=== PATIENT | female | born 1950 | race Caucasian/White ===

== ENCOUNTER 2018-06-23 07:06 | Day surgery (SDC) | payer OTHER ==
[~2018-06-23] VITALS: Ht 165.1 cm; Wt 48.5 kg
[~2018-06-23 07:06] MED LIST: ALPR.25 PO; ASACOL HD800 MG PO; CALCAVITD; CALCIUM + D3 E1 EACH PO; CYCL10 PO; DICLOFENAC SOD100 GM TOP; ERGO400; Estrace Vagin42.5 GM VAG; Flonase 0.05% N16 GM; HYDSUL200 PO; Hair, Skin & N1 EACH PO; L-Lysine500 M1; MAGCHL64ER PO; MERIBIN5 MG; PIRO20 PO; PROLIA60 MG/1 ML IM; RAME8 PO; TEMA7.5 PO; TRAM50 PO
[2018-06-24] MEDS ORDERED: OXYC5 PO (10:07)
== END 2018-06-24 11:40 | disposition home or self-care (01) ==
LOC: ORSCMMR 07:06 → ORD 10:00 → ORSCMMR 10:00 → SURS 13:43 → ORSCMMR 06-24 11:40
PROVIDERS: Orthopaedic Surgery
PROC: 01NB0ZZ Release Lumbar Nerve, Open Approach (ICD-10-PCS; principal; 2018-06-23 10:00)
PROC: 0SB20ZZ Excision of Lumbar Vertebral Disc, Open Approach (ICD-10-PCS; principal; 2018-06-23 10:00)
DX: M51.16 Intervertebral disc disorders with radiculopathy, lumbar region (principal); Z87.891 Personal history of nicotine dependence; Z79.899 Other long term (current) drug therapy
CPT/HCPCS: 88304; J0330; J0690; J1100; J1885; J2250; J2370; J2405; J2710; J3010; J3370; J7120

== ENCOUNTER 2020-06-22 11:08 | Inpatient (IN) | payer OTHER ==
[~2020-06-22] VITALS: Ht 162.6 cm; Wt 50.1 kg
[~2020-06-22 11:08] MED LIST changes: -CALCIUM + D3 E1 EACH PO; +CALCIUM CARBON500 M1 PO; +OXYC5 PO
[2020-06-22 12:06] LABS: BASOPHILS ABSOLUTE AUTO 0.05 K/mm3 (0.00-0.23); BASOPHILS PERCENT AUTO 1 % (0-2); EOSINOPHILS ABSOLUTE AUTO 0.02 K/mm3 (0.00-0.68); EOSINOPHILS PERCENT AUTO 0 % (0-6); Hematocrit 37.3 % (33.0-51.0); Hemoglobin 12.4 g/dL (11.5-16.0); IMMATURE GRAN ABSOLUTE AUTO 0.02 K/mm3 (0.00-0.10); IMMATURE GRAN PERCENT AUTO 0 % (0-1); LYMPHOCYTES ABSOLUTE AUTO 0.82 K/mm3 (0.84-5.20); LYMPHOCYTES PERCENT AUTO 10 % (21-46); MONOCYTES ABSOLUTE AUTO 0.79 K/mm3 (0.16-1.47); MONOCYTES PERCENT AUTO 10 % (4-13); Mean Corpuscular HGB 30.1 pg (26.0-34.0); Mean Corpuscular HGB Conc 33.2 g/dL (31.5-36.5); Mean Corpuscular Volume 91 fL (80-100); Mean Platelet Volume 8.8 fL (9.1-12.4); NEUTROPHILS ABSOLUTE AUTO 6.48 K/mm3 (1.96-9.15); NEUTROPHILS PERCENT AUTO 79 % (41-73); Platelet Count 383 K/mm3 (150-400); RDW Coefficient Variation 12.6 % (11.7-14.2); RDW Standard Deviation 41.7 fL (35.1-46.3); Red Blood Cell Count 4.12 M/mm3 (3.80-5.20); White Blood Cell Count 8.18 K/mm3 (4.00-11.30)
[2020-06-22] MEDS ORDERED: ALPR.25 PO (12:12)
[2020-06-22] MEDS ORDERED: Vitamin D2000 UNIT PO (12:22)
[2020-06-22] MEDS ORDERED: MOBIC15 MG PO (12:23)
[2020-06-22 12:29] LABS: Alanine Aminotransfer (ALT/SGP 36 U/L (12-78); Albumin, Blood 3.5 g/dL (3.4-5.0); Albumin/Globulin Ratio 0.9 (0.8-1.8); Alk Phos 69 U/L (50-136); Anion Gap 7 mmol/L (6-16); Aspartate Aminotrans (AST/SGOT 54 U/L (12-37); Bilirubin, Total 0.4 mg/dL (0.1-1.0); Blood Urea Nitrogen 10 mg/dL (8-24); Bun/Creatinine Ratio 13.6 (12.0-20.0); CO2, Blood 33 mmol/L (21-32); Calcium, Blood 9.3 mg/dL (8.5-10.1); Chloride, Blood 90 mmol/L (98-108); Creatinine, Blood 0.74 mg/dL (0.40-1.00); Globulin, Blood 4.1 g/dL (2.2-4.0); Glomerular Filtration Rate >60 (60-); Glucose, Blood 99 mg/dL (70-99); Potassium, Blood 3.5 mmol/L (3.5-5.5); Sodium, Blood 130 mmol/L (136-145); Total Protein, Blood 7.6 g/dL (6.4-8.2); Troponin I <0.015 ng/mL (0.000-0.040)
--- NOTE | 2020-06-22 17:00 | NUR ---
ASSUMED CARE: PT ARRIVED FROM [facility] AFTER RECIEVING STENT IN SVC. DRESSING TO RIGHT AC NOTED WITH NO EXTRA BLEEDING OR SIGNS OF HEMATOMA. O2 2L IN PLACE DUE TO PT FEELING SOB BUT SATTING 98%. RESPIRATIONS IN MID 20S. AT BEDSIDE.
[2020-06-22] MEDS ORDERED: ONDA4ODT MM (17:16)
--- NOTE | 2020-06-22 18:40 | NUR ---
DR REA CAME TO SEE PT AND STATES HE IS PLANNING ON HAVING A LIVER BIOPPSY DONE. AWARE THAT DR REYES WISHES FOR HEPARIN GTT AND REQUESTED THAT RN CONTACT DR REYES REGARDING THIS. DR REYES STATES HEPARIN GTT CAN BE HELD FOR CT AND RESTARTED. STATES HEPARIN GTT NEEDED NOW DUE TO THROMBUS SO SHOULD NOT BE HELD UNTIL CT. DR REA AWARE. CALL TO CT TO DETERMINE WHEN HEPARIN SHOULD BE STOPPED. [employer] CONSULTANT AWARE.
--- NOTE | 2020-06-22 18:42 | NUR ---
SHIFT SUMMARY: PT AND IN ROOM. NS AT 75/HR AT THIS TIME. AWAITING PHARMACY'S RECOMMENDATIONS ABOUT HEPARIN. PLAN FOR LIVER BIOPSY IN AM AND AWAITING TO HEAR FROM CT REGARDING WHEN TO HOLD HEPARIN. RIGHT ARM PUNCTURE SITE WITH NO BLEEDING OR HEMATOMA NOTED AT THIS TIME. NSR AT THIS TIME. NO FURTHER NEEDS OR CONCERNS.
[2020-06-22 18:49] LABS: International Normalized Ratio 1.09; Prothrombin Time Results 11.6 Sec (9.7-11.5)
--- NOTE | 2020-06-22 20:00 | NUR ---
ASSUMED CARE: PT IN FOR SUPERIOR VENA CAVA SYDNDROME FOLLOWING COMPLAINTS OF SOB AND BILAT ARM SWELLING. PT ALSO HAS A IJ THROMBUS. SHE IS A&O, AT BEDSIDE. IN SR. VSS. ON 2LNC FOR COMFORT. PT SATS >90% ON RA. HEPARIN INFUSING THROUGH S UPPER ARM IV. PT HAS A RAC PUNCTURE SITE PULSE IS STRONG. HAS ALL SENSATIONS TO FINGERS. IS A STANDBY ASSIST IN ROOM. PLAIN IS FOR A CT GUIDED LIVER BIOPSY IN AM. HEPARIN TO BE TURNED OFF PRIOR TO PROCEDURE. WILL CONTINUE TO MONITOR
[2020-06-23 02:07] LABS: Hemoglobin 11.7 g/dL (11.5-16.0); Mean Corpuscular HGB 30.6 pg (26.0-34.0); Mean Corpuscular HGB Conc 33.4 g/dL (31.5-36.5); Mean Corpuscular Volume 92 fL (80-100); Mean Platelet Volume 8.7 fL (9.1-12.4); Platelet Count 338 K/mm3 (150-400); RDW Coefficient Variation 12.9 % (11.7-14.2); RDW Standard Deviation 43.2 fL (35.1-46.3); Red Blood Cell Count 3.82 M/mm3 (3.80-5.20); White Blood Cell Count 5.77 K/mm3 (4.00-11.30)
[2020-06-23 02:31] LABS: Alanine Aminotransfer (ALT/SGP 44 U/L (12-78); Albumin/Globulin Ratio 0.9 (0.8-1.8); Alk Phos 56 U/L (50-136); Anion Gap 5 mmol/L (6-16); Aspartate Aminotrans (AST/SGOT 97 U/L (12-37); Bilirubin, Total 0.6 mg/dL (0.1-1.0); Blood Urea Nitrogen 10 mg/dL (8-24); Bun/Creatinine Ratio 14.5 (12.0-20.0); CO2, Blood 31 mmol/L (21-32); Calcium, Blood 8.2 mg/dL (8.5-10.1); Chloride, Blood 100 mmol/L (98-108); Creatinine, Blood 0.69 mg/dL (0.40-1.00); Globulin, Blood 3.4 g/dL (2.2-4.0); Glomerular Filtration Rate >60 (60-); Glucose, Blood 91 mg/dL (70-99); Potassium, Blood 4.1 mmol/L (3.5-5.5); Sodium, Blood 136 mmol/L (136-145); Total Protein, Blood 6.4 g/dL (6.4-8.2); Uric Acid, Blood 3.7 mg/dL (2.6-6.0)
--- NOTE | 2020-06-23 05:58 | NUR ---
SHIFT SUMMARY: NO ACUTE CHANGES T/O SHIFT. VSS. HEPARIN IS STILL INFUSING. CALL PLACED TO CT RE EST TIME OF CT. NO CLEAR TIME. RADIOLOGIST COMES IN AT 0800 AND WILL LOOK AT IMAGES PRIOR TO SCHEDULING. WILL PASS REPORT TO ONCOMING SHIFT
--- NOTE | 2020-06-23 08:27 | NUR ---
HEPARIN TURNED OFF PER RADIOLOGIST FOR PLANNED LIVER BX AROUND 1400. AM MEDS GIVEN. PT RESTING IN BED W/O COMPLAINTS.
--- NOTE | 2020-06-23 09:37 | NUR ---
PT REQUESTED XANAX FOR ANXIETY, GIVEN OREDERED
--- NOTE | 2020-06-23 15:10 | NUR ---
PT BACK FROM BONE MARROW BX. SITE INTACT, PER PT REQUEST XANAX AND ZOFRAN GIVEN. PT STATES SHE FEELS COMFORTABLE AFTER MEDICATION ADMINISTRATION.
--- NOTE | 2020-06-23 16:42 | NUR ---
HEPARIN GTT RESTARTED AT 17UNITS PER DR REYES. PHARMACY NOTIFIED. BANDAID PLACED TO BONE MARROW SITE. ULTRAM GIVEN FOR BX SITE DISCOMFORT.
--- NOTE | 2020-06-23 18:31 | NUR ---
PT WELL AFTER BONE MARROW BX TODAY, SITE APPEARS WNL, PT DENIES PAIN OR DISCOMFORT. AMBULATES TO COMMODE WITH STANDBY ASSIST. AT BEDSIDE FOR MOST OF THE DAY. HEPARIN INFUSING@ 17 UNITS/HR. PTT@ 2300 MANAGED BY PHARMACY.
--- NOTE | 2020-06-23 20:27 | NUR ---
INITAL SHIFT ASSESSMENT PT IS ALERT AND STANDING AT BEDSIDE WITH HELPNG HER BACK TO BED. SHE IS STEADY ON HER FEET, BUT STATES SHE FEELS A LITTLE SOB WITH ANY EXERTION. OXYGEN WAS REPLACED AT 2 L NC AND THIS GAVE PT RELIEF FROM HER SOB. OXYGEN SATS 96%. VITALS ARE STABLE AT THIS TIME. PT OVERALL HAS A BENIGN ASSESSMENT. SHE HAS A DRESSING TO RIGHT POSTERIOR BUTTOCKS THAT IS CDI FROM THE BONE BX TODAY. IV TO LEFT UPPER ARM CDI WITH HEP GTT NS RUNNING ORDERED. DRESSING CDI WITH NO S/S OF INFECTION. SEE EMAR FOR ALL ADMINISTERED MEDICATIONS T/O SHIFT. PT HAS CALL LIGHT IN REACH AND IS ABLE TO USE. WILL CON'T TO MONITOR AND KEEP PT SAFE T/O SHIFT.
[2020-06-24 05:33] LABS: Hematocrit 34.4 % (33.0-51.0); Hemoglobin 11.2 g/dL (11.5-16.0); Mean Corpuscular HGB 30.7 pg (26.0-34.0); Mean Corpuscular HGB Conc 32.6 g/dL (31.5-36.5); Mean Corpuscular Volume 94 fL (80-100); Platelet Count 316 K/mm3 (150-400); RDW Coefficient Variation 12.9 % (11.7-14.2); Red Blood Cell Count 3.65 M/mm3 (3.80-5.20); White Blood Cell Count 6.12 K/mm3 (4.00-11.30)
--- NOTE | 2020-06-24 05:40 | NUR ---
SHIFT SUMMARY PT CON'T TO BE STABLE, PLESANT AND COOPERTIVE WITH HER CARE. VITALS ARE STABLE T/O SHIFT. SHE HAS NO COMPLAINTS AT THIS TIME. HEP GTT CON'T TO RUN WELL NS. PT UP TO TOILET WITH NO ISSUES. SHE IS SLIGHTLY SOB WITH ACTIVITY, BUT RECOVERS WELL. WILL CON'T TO MONITOR AND KEEP PT SAFE TILL REPORT TO ONCOMING RN.
[2020-06-24 06:01] LABS: Anion Gap 4 mmol/L (6-16); Blood Urea Nitrogen 9 mg/dL (8-24); CO2, Blood 27 mmol/L (21-32); Calcium, Blood 8.3 mg/dL (8.5-10.1); Chloride, Blood 104 mmol/L (98-108); Glomerular Filtration Rate >60 (60-); Glucose, Blood 87 mg/dL (70-99); Phosphorus, Blood 2.5 mg/dL (2.5-4.9); Sodium, Blood 135 mmol/L (136-145)
--- NOTE | 2020-06-24 11:03 | NUR ---
Assumed care of pt at 0700. Bedside report received from Cecilia RODRIGUES. Pt A&O x 4. Answers questions. Follows commands. Verbalizes needs. Pt SBA to get out of bed. Pt on 2 LPM NC. Does not wear oxygen at baseline. Titrated down to 1 LPM NC. Lungs dim t/o. Pt states she is a little short of breath but it is greatly improved post IR. SR per monitor. BP stable. Bed in lowest position. Call light in reach. Pt denies need at this time.
--- NOTE | 2020-06-24 11:50 | NUR ---
SpO2 100% with 1 LPM NC. Pt titrated to room air. SpO2 90% or greater. Will continue to reassess.
[2020-06-24] MEDS ORDERED: ACET325 PO (16:57)
[2020-06-24] MEDS ORDERED: DOCU100 PO (16:58)
[2020-06-24] MEDS ORDERED: XARELTO20 MG PO (16:59)
[2020-06-24] MEDS ORDERED: TEMA15 PO (17:01)
[2020-06-24] MEDS ORDERED: TRAM50 PO (17:02)
--- NOTE | 2020-06-24 18:49 | NUR ---
Pt discharged from department at 1805 accomapnied by spouse. Heparin drip stopped. PO xarelto given. Per pt request, flu vaccine given. Pt on room air, SpO2 90% or greater. Meds faxed to [facility]. Pt provided with written prescriptions for temazepam and tramadol. Follow up appointment made with Dr Varghese per pt request. Attempted to make follow up appointment for Dr Waddell, office stated they would call patient. Pt's spouse stated they already have follow up appointments for primary care provider and Dr Smith.
[2020-06-26 19:07] LABS: (LD) FRACTION 1 17 % (17-32); (LD) FRACTION 2 23 % (25-40); (LD) FRACTION 3 19 % (17-27); (LD) FRACTION 4 18 % (5-13); (LD) FRACTION 5 23 % (4-20); LDH 758 IU/L (119-226)
== END 2020-06-24 17:50 | disposition home or self-care (01) | DRG 271 ==
LOC: ER 11:08 → ICUW 11:09 → ICUE 11:09 → ICUW 06-24 14:37 → ICUE 06-24 14:38
PROVIDERS: Internal Medicine; Internal Medicine Hematology & Oncology; Nurse Practitioner Acute Care; Pharmacist; Physician Assistant; ADMIT Internal Medicine
PROC: B51M1ZZ Fluoroscopy of Right Upper Extremity Veins using Low Osmolar Contrast (ICD-10-PCS; principal; 2020-06-22)
PROC: 027V3DZ Dilation of Superior Vena Cava with Intraluminal Device, Percutaneous Approach (ICD-10-PCS; 2020-06-22)
PROC: 05CY3ZZ Extirpation of Matter from Upper Vein, Percutaneous Approach (ICD-10-PCS; 2020-06-22)
PROC: 027V3ZZ Dilation of Superior Vena Cava, Percutaneous Approach (ICD-10-PCS; 2020-06-22)
PROC: 3E04317 Introduction of Other Thrombolytic into Central Vein, Percutaneous Approach (ICD-10-PCS; 2020-06-22)
PROC: 0QB23ZX Excision of Right Pelvic Bone, Percutaneous Approach, Diagnostic (ICD-10-PCS; 2020-06-23)
PROC: 02CV3ZZ Extirpation of Matter from Superior Vena Cava, Percutaneous Approach (ICD-10-PCS; 2020-06-23)
DX: I87.1 Compression of vein (principal); I82.C11 Acute embolism and thrombosis of right internal jugular vein; C78.7 Secondary malignant neoplasm of liver and intrahepatic bile duct; E87.1 Hypo-osmolality and hyponatremia; C79.51 Secondary malignant neoplasm of bone; Z87.891 Personal history of nicotine dependence; M06.9 Rheumatoid arthritis, unspecified; Z78.0 Asymptomatic menopausal state
CPT/HCPCS: 20225; 36010; 36415; 37187; 37238; 37249; 70470; 75820; 77012; 80053; 80069; 82378; 83615; 83625; 83690; 83880; 84484; 84550; 85025; 85027; 85610; 85730; 88305; 88341; 88342; 93005; 93010; 96374; 96375; 96376; 99152; 99153; 99285; A9270; C1725; C1757; C1769; C1876; C1887; C1894; G0008; G0378; J0461; J1644; J2250; J2405; J2997; J3010; J7030; Q2038; Q9967

== ENCOUNTER 2020-07-19 06:08 | Day surgery (SDC) | payer OTHER ==
[~2020-07-19] VITALS: Ht 162.6 cm; Wt 46.1 kg
[~2020-07-19 06:08] MED LIST changes: +ACET325 PO; +ATEZOLIZUMAB IV; +CALCIUM CIT 311 EACH PO; +DOCU100 PO; +Etoposide50 MG IV; +MELO7.5 PO; +MOBIC15 MG PO; +ONDA4 PO; +ONDA4ODT MM; +PARAPLATIN IV; +PROLIA60 MG/1 ML SC; +TEMA15 PO; +Vitamin D2000 UNIT PO; +Voltaren100 GM TOP; +XARELTO20 MG PO
[2020-07-19] MEDS ORDERED: METO10 PO (06:27)
--- NOTE | 2020-07-19 06:48 | NUR ---
Ambulatory in Day Surgery History, Chart, Medications and Allergies reviewed before start of procedure. Lungs clear T/O to Auscultation. Pre-Op teaching done. Pt verbalizes understanding.
--- NOTE | 2020-07-19 10:05 | NUR ---
1003 Patient up to Ambulate independently. Gait steady. Discharge instructions reviewed with patient. Patient verbalizes understanding. Copy given to patient to take home. Dressing to procedure site clean, dry, intact with no visible drainage, swelling, erythema or bruising noted. Patient States Post-Procedure ride home has been arranged. Discharged via wheelchair to private car for ride home. [facility] [employer] [facility] S[facility] WITH PATIENT.
== END 2020-07-19 12:00 | disposition home or self-care (01) ==
LOC: ORSCMMR 06:08 → ORD 07:30 → ORSCMMR 07:30
PROVIDERS: Surgery
PROC: 05HN33Z Insertion of Infusion Device into Left Internal Jugular Vein, Percutaneous Approach (ICD-10-PCS; principal; 2020-07-19 07:30)
PROC: B5141ZA Fluoroscopy of Left Jugular Veins using Low Osmolar Contrast, Guidance (ICD-10-PCS; principal; 2020-07-19 07:30)
DX: C34.90 Malignant neoplasm of unspecified part of unspecified bronchus or lung (principal); C79.51 Secondary malignant neoplasm of bone; C78.7 Secondary malignant neoplasm of liver and intrahepatic bile duct; Z87.891 Personal history of nicotine dependence; Z79.01 Long term (current) use of anticoagulants; Z79.899 Other long term (current) drug therapy
CPT/HCPCS: 77001; A9270-GY; C1788; J0690; J1100; J1642; J2405; J2704; J3010; J7120

== ENCOUNTER 2020-09-19 14:24 | Emergency (ER) | payer OTHER ==
[~2020-09-19] VITALS: Ht 162.6 cm; Wt 47.6 kg
[~2020-09-19 14:24] MED LIST changes: +METO10 PO
[2020-09-19 15:31] LABS: Hematocrit 38.9 % (33.0-51.0); Hemoglobin 12.6 g/dL (11.5-16.0); Mean Corpuscular HGB 31.3 pg (26.0-34.0); Mean Corpuscular HGB Conc 32.4 g/dL (31.5-36.5); Mean Corpuscular Volume 97 fL (80-100); NRBC ABSOLUTE 0.02 K/mm3 (0.00-0.02); NRBC Auto 0.1 /100 WBC (0.0-0.2); Platelet Count 329 K/mm3 (150-400); RDW Coefficient Variation 18.4 % (11.7-14.2); RDW Standard Deviation 64.4 fL (35.1-46.3); Red Blood Cell Count 4.02 M/mm3 (3.80-5.20); White Blood Cell Count 21.47 K/mm3 (4.00-11.30)
[2020-09-19 15:36] LABS: Source, Urine Clean Catch
[2020-09-19 15:42] LABS: Alanine Aminotransfer (ALT/SGP 67 U/L (12-78); Albumin, Blood 3.5 g/dL (3.4-5.0); Albumin/Globulin Ratio 0.8 (0.8-1.8); Alk Phos 92 U/L (50-136); Anion Gap 7 mmol/L (6-16); Aspartate Aminotrans (AST/SGOT 17 U/L (12-37); Bilirubin, Total 0.2 mg/dL (0.1-1.0); Blood Urea Nitrogen 16 mg/dL (8-24); Bun/Creatinine Ratio 17.7 (12.0-20.0); CO2, Blood 29 mmol/L (21-32); Calcium, Blood 9.3 mg/dL (8.5-10.1); Chloride, Blood 93 mmol/L (98-108); Globulin, Blood 4.6 g/dL (2.2-4.0); Glomerular Filtration Rate >60 (60-); Glucose, Blood 181 mg/dL (70-99); Potassium, Blood 4.7 mmol/L (3.5-5.5); Sodium, Blood 129 mmol/L (136-145); Total Protein, Blood 8.1 g/dL (6.4-8.2)
[2020-09-19 16:02] LABS: BAND PERCENT MAN 23 % (0-8); BASOPHILS PERCENT MAN 0 % (0-2); EOSINOPHILS PERCENT MAN 0 % (0-6); LYMPHOCYTES ABSOLUTE MAN 0.64 K/mm3 (0.84-5.20); LYMPHOCYTES PERCENT MAN 3 % (21-46); MONOCYTES ABSOLUTE MAN 0.42 K/mm3 (0.16-1.47); MONOCYTES PERCENT MAN 2 % (4-13); NEUTROPHILS ABSOLUTE MAN 20.39 K/mm3 (1.96-9.15); SEG NEUTROPHILS PERCENT MAN 72 % (41-73); TOTAL CELLS COUNTED 100
[2020-09-19 16:09] LABS: Bilirubin, Urine Neg (Neg); Blood, Urine 3+ (Neg); Glucose Qualitative, Urine Neg (Neg); Ketones, Urine Neg (Neg); Leukocyte Esterase, Urine 1+ (Neg); Nitrite, Urine Neg (Neg); Protein, Urine 2+ (Neg); Urobilinogen, Urine NORM (Normal)
[2020-09-19 16:13] LABS: Appearance, Urine Clear (Clear); Color, Urine Yellow (P-Yellow)
[2020-09-19 16:14] LABS: Bacteria Few /hpf; Squamous Epithelial Cells Rare /hpf (Few); White Blood Cells, Urine 0-2 /hpf (0-5)
[2020-09-19] MEDS ORDERED: RESTORIL15 M1 PO (17:56)
[2020-09-19] MEDS ORDERED: AMOCLA875 PO (18:04)
[2020-09-19] MEDS ORDERED: HYDR1TAB94 PO (18:04)
== END 2020-09-19 18:25 | disposition home or self-care (01) ==
LOC: ER 14:24
PROVIDERS: Student in an Organized Health Care Education/Training Program
DX: K52.9 Noninfective gastroenteritis and colitis, unspecified (principal); E87.1 Hypo-osmolality and hyponatremia; E86.0 Dehydration; C34.90 Malignant neoplasm of unspecified part of unspecified bronchus or lung; Z88.1 Allergy status to other antibiotic agents; Z79.01 Long term (current) use of anticoagulants; Z79.899 Other long term (current) drug therapy; Z87.891 Personal history of nicotine dependence
CPT/HCPCS: 36415; 80053; 81001; 83690; 85025; 87086; 96374; 96375; 99284-25; A9270-GY; J2270; J2405; J7120

== ENCOUNTER → 2020-09-27 | Outpatient (CLI) | payer OTHER, SELFPAY ==
[~2020-09-27] MED LIST changes: +AMOCLA875 PO; +AZO CRANBERRY PO; +Cipro500 MG PO; +DIPATR PO; +DRON2.5 PO; +FAMO20 PO; +FLAGYL500 M1 PO; +HYDR1TAB94 PO; +LOMOTIL 2.5-0.1 EACH PO; +LORAZEPAM0.5 MG PO; -MELO7.5 PO; +OLAN2.5 PO; -ONDA4 PO; +ONDA4ODT SL; +POTA10T PO; +POTA20LUD PO; +Prednisone10 MG PO; +RESTORIL15 M1 PO
[2020-09-30 21:07] LABS: ADENOVIRUS F 40/41 Not Detected (Not Detected); ASTROVIRUS Not Detected (Not Detected); C DIFFICILE TOXIN A/B Not Detected (Not Detected); CRYPTOSPORIDIUM Not Detected (Not Detected); CYCLOSPORA CAYETANENSIS Not Detected (Not Detected); ENTAMOEBA HISTOLYTICA Not Detected (Not Detected); ENTEROAGGREGATIVE E COLI Not Detected (Not Detected); ENTEROPATHOGENIC E COLI Not Detected (Not Detected); ENTEROTOXIGENIC E COLI Not Detected (Not Detected); GIARDIA LAMBLIA Not Detected (Not Detected); NOROVIRUS GI/GII Not Detected (Not Detected); PLESIOMONAS SHIGELLOIDES Not Detected (Not Detected); ROTAVIRUS A Not Detected (Not Detected); SALMONELLA Not Detected (Not Detected); SAPOVIRUS Not Detected (Not Detected); SHIGA-TOXIN-PRODUCING E COLI Not Detected (Not Detected); SHIGELLA/ENTEROINVASIVE E COLI Not Detected (Not Detected); VIBRIO Not Detected (Not Detected); VIBRIO CHOLERAE Not Detected (Not Detected); YERSINIA ENTEROCOLITICA Not Detected (Not Detected)
== END | disposition home or self-care (01) ==
LOC: LAB SHORT 17:00 → LAB UCHC 17:00
PROVIDERS: Student in an Organized Health Care Education/Training Program
DX: R19.7 Diarrhea, unspecified (principal)
CPT/HCPCS: 0097U

== ENCOUNTER 2020-10-13 16:39 | Inpatient (IN) | payer OTHER ==
[~2020-10-13] VITALS: Ht 162.6 cm; Wt 47.2 kg
[~2020-10-13 16:39] MED LIST changes: -AZO CRANBERRY PO; -CALCIUM CIT 311 EACH PO; -Cipro500 MG PO; -DIPATR PO; -DRON2.5 PO; -FAMO20 PO; -FLAGYL500 M1 PO; -LOMOTIL 2.5-0.1 EACH PO; -LORAZEPAM0.5 MG PO; -OLAN2.5 PO; -ONDA4ODT SL; -POTA10T PO; -POTA20LUD PO; -Prednisone10 MG PO; -RESTORIL15 M1 PO
[2020-10-13] MEDS ORDERED: Cipro500 MG PO ×2 (18:03)
[2020-10-13] MEDS ORDERED: FLAGYL500 M1 PO ×2 (18:04)
[2020-10-13] MEDS ORDERED: Prednisone10 MG PO ×2 (18:05)
[2020-10-13] MEDS ORDERED: POTA10T PO ×2 (18:05)
[2020-10-13] MEDS ORDERED: ONDA4ODT SL ×2 (18:06)
[2020-10-13] MEDS ORDERED: LORAZEPAM0.5 MG PO ×2 (18:07)
[2020-10-13] MEDS ORDERED: OXYC5 PO ×2 (18:08)
[2020-10-13] MEDS ORDERED: RESTORIL15 M1 PO ×2 (18:08)
[2020-10-13] MEDS ORDERED: ALPR.25 PO ×2 (18:09)
[2020-10-13] MEDS ORDERED: OLAN2.5 PO ×2 (18:10)
[2020-10-13] MEDS ORDERED: DRON2.5 PO ×2 (18:11)
[2020-10-13] MEDS ORDERED: LOMOTIL 2.5-0.1 EACH PO (18:12)
[2020-10-13] MEDS ORDERED: XARELTO20 MG PO ×2 (18:13)
[2020-10-13] MEDS ORDERED: MOBIC15 MG PO (18:13)
[2020-10-13] MEDS ORDERED: HYDSUL200 PO ×2 (18:38)
[2020-10-13] MEDS ORDERED: CALCIUM CIT 311 EACH PO ×2 (18:38)
--- NOTE | 2020-10-14 04:35 | NUR ---
SHIFT SUMMARY PT ER ADMIT THIS SHIFT FOR ANEMIA. SHE HAS RECEIVED 2 UNITS OF PRBC'S AND TOLERATED WELL. REPEAT LABS ARE PENDING AT THIS TIME. PT ALSO HYPOKALEMIC, POTASSIUM HAS BEEN REPLACED, SHE RECEIVED TWO K RIDERS. PT HAS HAD DIARRHEA, THIS IS NOT NEW FOR HER AND STATES SINCE CHEMO BUT THAT SHE DOES HAVE A HISTORY OF ULCERATIVE COLITIS. PT HAS A GI CONSULT PENDING AT THIS TIME. PT VITALS HAVE BEENS STABLE. MEDICATED FOR ABD AND BACK PAIN X1 THIS SHIFT. ADMISSION COMPLETE. IVF INFUSING AT 50 ML/HR. PT A/OX4, PLESANT WITH CARE. BED IN LOWEST POSITION, CALL LIGHT WITHIN REACH.
[2020-10-14 04:57] LABS: Hemoglobin 9.9 g/dL (11.5-16.0); Mean Corpuscular HGB 30.1 pg (26.0-34.0); Mean Corpuscular Volume 91 fL (80-100); Mean Platelet Volume 8.5 fL (9.1-12.4); Platelet Count 339 K/mm3 (150-400); RDW Coefficient Variation 16.6 % (11.7-14.2); RDW Standard Deviation 55.8 fL (35.1-46.3); Red Blood Cell Count 3.29 M/mm3 (3.80-5.20); White Blood Cell Count 6.77 K/mm3 (4.00-11.30)
[2020-10-14 05:21] LABS: Alanine Aminotransfer (ALT/SGP 22 U/L (12-78); Albumin, Blood 1.7 g/dL (3.4-5.0); Albumin/Globulin Ratio 0.5 (0.8-1.8); Alk Phos 66 U/L (50-136); Anion Gap 4 mmol/L (6-16); Aspartate Aminotrans (AST/SGOT 10 U/L (12-37); Bilirubin, Total 0.9 mg/dL (0.1-1.0); Blood Urea Nitrogen 21 mg/dL (8-24); Bun/Creatinine Ratio 37.8 (12.0-20.0); CO2, Blood 28 mmol/L (21-32); Calcium, Blood 7.7 mg/dL (8.5-10.1); Chloride, Blood 104 mmol/L (98-108); Creatinine, Blood 0.56 mg/dL (0.40-1.00); Globulin, Blood 3.7 g/dL (2.2-4.0); Glomerular Filtration Rate >60 (60-); Glucose, Blood 82 mg/dL (70-99); Potassium, Blood 4.1 mmol/L (3.5-5.5); Sodium, Blood 136 mmol/L (136-145); Total Protein, Blood 5.4 g/dL (6.4-8.2)
[2020-10-14 05:27] LABS: BAND PERCENT MAN 27 % (0-8); BASOPHILS PERCENT MAN 0 % (0-2); EOSINOPHILS PERCENT MAN 0 % (0-6); LYMPHOCYTES ABSOLUTE MAN 1.62 K/mm3 (0.84-5.20); LYMPHOCYTES PERCENT MAN 24 % (21-46); MONOCYTES ABSOLUTE MAN 0.54 K/mm3 (0.16-1.47); MONOCYTES PERCENT MAN 8 % (4-13); SEG NEUTROPHILS PERCENT MAN 41 % (41-73); TOTAL CELLS COUNTED 100
[2020-10-14 11:16] LABS: Influenza A, PCR Negative (NEGATIVE); Influenza B, PCR Negative (NEGATIVE); Resp Syncytial Virus, PCR Negative (NEGATIVE); SARS-Cov-2 (COVID-19) PCR, MMC Negative (NEGATIVE)
--- NOTE | 2020-10-14 15:03 | NUR ---
10/14/20 1503 ELIDIA GUZMAN History, Chart, Medications and Allergies reviewed before start of procedure. 3-LEAD EKG REVIEWED WITH PHYSICIAN PRIOR TO START OF PROCEDURE. O2 VIA N/C INTACT THROUGHOUT SEDATION/PROCEDURE. MONITOR INTACT WITH CONTINUOUS PULSE OXIMETRY AND INTERMITTENT BP. PATIENT DETERMINED TO BE ASA APPROPRIATE FOR PROPOFOL SEDATION PRIOR TO START OF PROCEDURE BY DR. ARAIZA.
--- NOTE | 2020-10-14 16:09 | NUR ---
PT RETURNED FROM DAY SURGERY PT RETURNED FROM DAY SURGERY. SNACKS PROVIDED. CALL LIGHT IN REACH. PT DENIES OTHER NEEDS AT THIS TIME.
--- NOTE | 2020-10-14 18:45 | NUR ---
SHIFT SUMMARY PT HAD UPPER ENDO DONE TODAY. INFLAMATION FOUND & SIGMOID BIOPSIES TAKEN. PT PLACED BACK ON A REGULAR DIET AFTERWARDS. DR. HORNER NOFIFIED ABOUT MISSING HOME MEDS THIS SHIFT. DR. HORNER ORDERED NEEDED MEDS. PT HAS HAD A FEW LOOSE STOOLS. NO BLOOD VISIBLE IN STOOLS. PT PLEASANT & COOPERATIVE T/O SHIFT. VS REVIEWED. NO OTHER ACUTE CHANGES IN ASSESSMENT AT THIS TIME. PT RESTING IN BED WITH SPOUSE IN AT BEDSIDE.
--- NOTE | 2020-10-15 00:36 | NUR ---
10/14/20 194 PTS SPOUSE AT SIDE AND SUPPORTIVE; DENIES PAIN OR NAUSEA. 0030 RESTING COMFORTABLY IN BED.
--- NOTE | 2020-10-15 04:43 | NUR ---
SHIFT SUMMARY: 70 Y/O SLENDER FEMALE RESTED COMFORTABLY ALL SHIFT; PT C/O GENERALIZED PAIN RATD 04/01 WITH ROXICODONE 5MG PO GIVEN WITH RELIEF FELT; ALERT AND ORIENTED X 4; DENIES NAUSEA OR DYSPNEA; PT ABLE TO STAND, PIVOT AND TRANSFER TO BSC X 1 STANDBY ASSIST; NO BLEEDING NOTED OR VOICED; BED LOW POSITION WITH CALL LIGHT AT SIDE.
[2020-10-15 05:44] LABS: BASOPHILS ABSOLUTE AUTO 0.05 K/mm3 (0.00-0.23); BASOPHILS PERCENT AUTO 1 % (0-2); Hematocrit 32.7 % (33.0-51.0); Hemoglobin 10.7 g/dL (11.5-16.0); LYMPHOCYTES ABSOLUTE AUTO 1.12 K/mm3 (0.84-5.20); LYMPHOCYTES PERCENT AUTO 20 % (21-46); MONOCYTES ABSOLUTE AUTO 0.33 K/mm3 (0.16-1.47); MONOCYTES PERCENT AUTO 6 % (4-13); Mean Corpuscular HGB 30.1 pg (26.0-34.0); Mean Corpuscular HGB Conc 32.7 g/dL (31.5-36.5); Mean Corpuscular Volume 92 fL (80-100); Mean Platelet Volume 8.4 fL (9.1-12.4); Platelet Count 358 K/mm3 (150-400); RDW Coefficient Variation 16.9 % (11.7-14.2); RDW Standard Deviation 57.2 fL (35.1-46.3); Red Blood Cell Count 3.55 M/mm3 (3.80-5.20); White Blood Cell Count 5.53 K/mm3 (4.00-11.30)
[2020-10-15 05:45] LABS: EOSINOPHILS PERCENT AUTO 0 % (0-6); IMMATURE GRAN ABSOLUTE AUTO 0.03 K/mm3 (0.00-0.10); IMMATURE GRAN PERCENT AUTO 1 % (0-1); NEUTROPHILS PERCENT AUTO 72 % (41-73)
[2020-10-15 06:10] LABS: Anion Gap 7 mmol/L (6-16); Blood Urea Nitrogen 14 mg/dL (8-24); Bun/Creatinine Ratio 29.6 (12.0-20.0); CO2, Blood 26 mmol/L (21-32); Calcium, Blood 7.5 mg/dL (8.5-10.1); Chloride, Blood 107 mmol/L (98-108); Creatinine, Blood 0.47 mg/dL (0.40-1.00); Glomerular Filtration Rate >60 (60-); Glucose, Blood 115 mg/dL (70-99); Potassium, Blood 3.9 mmol/L (3.5-5.5); Sodium, Blood 140 mmol/L (136-145)
--- NOTE | 2020-10-15 17:43 | NUR ---
SHIFT SUMMARY PT IND TO BSC T/O DAY. PT HAD BEDBATH DONE TODAY WITH HELP FROM HER . STOOLS MORE FORMED TODAY, BUT REMAIN LOOSE. PT REPORTS A DECREASED NUMBER OF STOOLS TODAY WELL. NO ACUTE CHANGES IN ASSESSMENT AT THIS TIME. VS REVIEWED. PT INFORMED BY THAT SHE MAY DC TOMORROW OR SATURDAY. PT UP IN BED VISITING WITH CURRENTLY. DENIES FURTHER NEEDS AT THIS TIME.
--- NOTE | 2020-10-15 21:52 | NUR ---
2000 PT RESTING COMFORTABLY IN BED; PT REFUSED ZYPREXA SHE DOESN'T FEEL MED IS HELPING; ALERT AND ORIENTED X 4.
--- NOTE | 2020-10-16 03:41 | NUR ---
SHIFT SUMMARY: 70 Y/O SLENDER FEMALE RESTED COMFORTABLY ALL SHIFT; DENIES PAIN, NAUSEA OR ANXIETY; HAPPY AND COOPERATIVE; PT EAGER TO RETURN HOME; PT ABLE TO STAND, PIVOT AND TRANSFER TO BSC WITHOUT ISSUE; BED LOW POSITION WITH CALL LIGHT AT SIDE.
[2020-10-16 04:55] LABS: BASOPHILS ABSOLUTE AUTO 0.02 K/mm3 (0.00-0.23); BASOPHILS PERCENT AUTO 0 % (0-2); EOSINOPHILS PERCENT AUTO 0 % (0-6); Hematocrit 37.2 % (33.0-51.0); IMMATURE GRAN ABSOLUTE AUTO 0.05 K/mm3 (0.00-0.10); IMMATURE GRAN PERCENT AUTO 1 % (0-1); LYMPHOCYTES PERCENT AUTO 22 % (21-46); MONOCYTES ABSOLUTE AUTO 0.42 K/mm3 (0.16-1.47); MONOCYTES PERCENT AUTO 6 % (4-13); Mean Corpuscular HGB 29.5 pg (26.0-34.0); Mean Corpuscular HGB Conc 32.3 g/dL (31.5-36.5); Mean Corpuscular Volume 91 fL (80-100); Mean Platelet Volume 8.4 fL (9.1-12.4); NEUTROPHILS ABSOLUTE AUTO 4.93 K/mm3 (1.96-9.15); NEUTROPHILS PERCENT AUTO 71 % (41-73); Platelet Count 424 K/mm3 (150-400); RDW Coefficient Variation 16.5 % (11.7-14.2); RDW Standard Deviation 56.2 fL (35.1-46.3); Red Blood Cell Count 4.07 M/mm3 (3.80-5.20); White Blood Cell Count 6.92 K/mm3 (4.00-11.30)
[2020-10-16 05:15] LABS: Alanine Aminotransfer (ALT/SGP 22 U/L (12-78); Albumin/Globulin Ratio 0.5 (0.8-1.8); Alk Phos 70 U/L (50-136); Anion Gap 4 mmol/L (6-16); Aspartate Aminotrans (AST/SGOT 12 U/L (12-37); Bilirubin, Total 0.3 mg/dL (0.1-1.0); Blood Urea Nitrogen 12 mg/dL (8-24); Bun/Creatinine Ratio 23.3 (12.0-20.0); CO2, Blood 29 mmol/L (21-32); Calcium, Blood 8.1 mg/dL (8.5-10.1); Chloride, Blood 105 mmol/L (98-108); Creatinine, Blood 0.52 mg/dL (0.40-1.00); Globulin, Blood 4.1 g/dL (2.2-4.0); Glomerular Filtration Rate >60 (60-); Glucose, Blood 99 mg/dL (70-99); Potassium, Blood 3.7 mmol/L (3.5-5.5); Sodium, Blood 138 mmol/L (136-145); Total Protein, Blood 6.1 g/dL (6.4-8.2)
--- NOTE | 2020-10-16 19:29 | NUR ---
SHIFT SUMMARY PT STUGGLED WITH MORE PAIN TODAY, AVERAGING AROUND A 7. 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 K PAD SET UP TO HELP RELIEVE BACK & BELLY PAIN. STOOLS MORE FORMED, BUT REMAIN SOFT. NO BLOOD NOTED IN STOOL. NO OTHER ACUTE CHANGES IN ASSESSMENT AT THIS TIME. VS REVIEWED. SPOUSE CURRENTLY AT BEDSIDE. PT DENIES OTHER NEEDS AT THIS TIME. REPORT GIVEN TO LILIA SORIA.
[2020-10-17 05:19] LABS: BASOPHILS ABSOLUTE AUTO 0.04 K/mm3 (0.00-0.23); BASOPHILS PERCENT AUTO 1 % (0-2); EOSINOPHILS ABSOLUTE AUTO 0.01 K/mm3 (0.00-0.68); EOSINOPHILS PERCENT AUTO 0 % (0-6); Hemoglobin 12.3 g/dL (11.5-16.0); IMMATURE GRAN ABSOLUTE AUTO 0.04 K/mm3 (0.00-0.10); IMMATURE GRAN PERCENT AUTO 1 % (0-1); LYMPHOCYTES ABSOLUTE AUTO 1.35 K/mm3 (0.84-5.20); LYMPHOCYTES PERCENT AUTO 25 % (21-46); MONOCYTES ABSOLUTE AUTO 0.37 K/mm3 (0.16-1.47); MONOCYTES PERCENT AUTO 7 % (4-13); Mean Corpuscular HGB 30.5 pg (26.0-34.0); Mean Corpuscular HGB Conc 33.2 g/dL (31.5-36.5); Mean Corpuscular Volume 92 fL (80-100); Mean Platelet Volume 8.3 fL (9.1-12.4); NEUTROPHILS ABSOLUTE AUTO 3.61 K/mm3 (1.96-9.15); NEUTROPHILS PERCENT AUTO 67 % (41-73); Platelet Count 391 K/mm3 (150-400); RDW Coefficient Variation 16.4 % (11.7-14.2); RDW Standard Deviation 55.6 fL (35.1-46.3); Red Blood Cell Count 4.03 M/mm3 (3.80-5.20); White Blood Cell Count 5.42 K/mm3 (4.00-11.30)
[2020-10-17 05:38] LABS: Alanine Aminotransfer (ALT/SGP 23 U/L (12-78); Albumin, Blood 2.1 g/dL (3.4-5.0); Albumin/Globulin Ratio 0.5 (0.8-1.8); Alk Phos 65 U/L (50-136); Anion Gap 5 mmol/L (6-16); Aspartate Aminotrans (AST/SGOT 12 U/L (12-37); Bilirubin, Total 0.5 mg/dL (0.1-1.0); Blood Urea Nitrogen 12 mg/dL (8-24); Bun/Creatinine Ratio 20.7 (12.0-20.0); CO2, Blood 32 mmol/L (21-32); Calcium, Blood 8.3 mg/dL (8.5-10.1); Chloride, Blood 102 mmol/L (98-108); Creatinine, Blood 0.58 mg/dL (0.40-1.00); Globulin, Blood 3.9 g/dL (2.2-4.0); Glomerular Filtration Rate >60 (60-); Glucose, Blood 96 mg/dL (70-99); Potassium, Blood 3.7 mmol/L (3.5-5.5); Sodium, Blood 139 mmol/L (136-145)
--- NOTE | 2020-10-17 06:02 | NUR ---
SHIFT SUMMARY A/O, ABLE TO MAKE NEEDS KNOWN. COOPERATIVE WITH CARE. CALLS AND ANSWERS QUESTIONS APPROPRIATELY. C/O PAIN TO LOWER ABDOMEN/BACK; MEDICATED PER EMAR. UTILIZING K-PAD. INDEPENDENT TO BSC. NO ACUTE CHANGES NOTED OVERNIGHT. ANTICIPATING DISCHARGE THIS DAY. WOULD LIKE TO BE HERE FOR DISCHARGE PATIENT HAS "CHEMO BRAIN" THEY DESCRIBE THE FORGETFULNESS. APPEARED TO REST MUCH OF THE NIGHT. BED REMAINS IN LOWEST POSITION. CALL LIGHT AND BELONGINGS WITHIN REACH. CONTINUE WITH CURRENT PLAN OF CARE. REPORT TO ONCOMING RN.
[2020-10-17] MEDS ORDERED: POTA20LUD PO ×2 (12:05)
[2020-10-17] MEDS ORDERED: AZO CRANBERRY PO ×2 (12:09)
[2020-10-17] MEDS ORDERED: ACET325 PO ×2 (12:09)
[2020-10-17] MEDS ORDERED: FAMO20 PO ×2 (12:10)
[2020-10-17] MEDS ORDERED: DIPATR PO ×2 (12:10)
--- NOTE | 2020-10-17 13:41 | NUR ---
DISCHARGE PT IS A/O X4, PLEASANT AFFECT, UP IND TO BSC. STATE FEELING IMPROVED, HOPEFUL TO GO HOME TODAY. ISTRATE IN TO SEE HER, REVIEW DX & TX, STATE ANEMIA HAS IMPROVED, OK TO GO HOME TODAY, PLACE D/C ORDERS. MEDIDIEGO DEACCESSED w 5ML, 100U/ML HEP, INTACT. PT STATE WILL BE HERE AROUND 1400 FOR TRANSPORTATION HOME, REQUEST TO WAIT D/C INSTRUCT UNTIL HE ARRIVES. NEW SCRIPTS FAXED TO [facility]REQUEST.
--- NOTE | 2020-10-17 14:50 | NUR ---
D/C INSTRUCT REVIEWED w PT & . W/[facility] PROVIDED. THEY ARE PLEASANT, STATE SATISFACTION.
== END 2020-10-17 14:11 | disposition home or self-care (01) | DRG 392 ==
LOC: ER 16:39 → MEDS 16:40 → ENPENDDIS 10-17 12:24 → MEDS 10-17 14:11
PROVIDERS: Student in an Organized Health Care Education/Training Program; ADMIT Family Medicine
PROC: 0DBP8ZX Excision of Rectum, Via Natural or Artificial Opening Endoscopic, Diagnostic (ICD-10-PCS; principal; 2020-10-15)
PROC: 30233N1 Transfusion of Nonautologous Red Blood Cells into Peripheral Vein, Percutaneous Approach (ICD-10-PCS; 2020-10-15)
DX: K52.89 Other specified noninfective gastroenteritis and colitis (principal); C34.90 Malignant neoplasm of unspecified part of unspecified bronchus or lung; D64.9 Anemia, unspecified; E87.6 Hypokalemia; E88.09 Other disorders of plasma-protein metabolism, not elsewhere classified; M06.9 Rheumatoid arthritis, unspecified; Z87.891 Personal history of nicotine dependence; M54.16 Radiculopathy, lumbar region; Z20.822 Contact with and (suspected) exposure to COVID-19
CPT/HCPCS: 0241U; 36415; 36430; 80048; 80053; 83735; 83993; 85025; 86850; 86900; 86901; 86923; 87493; 88305; 88342; 96374; 96375; 96376; 97162; 97530; 99284-25; A9270; G0378; J1642; J2250; J2920; J3010; J3480; J7030; J7050; J7120; J7512; P9016; Q0167

== ENCOUNTER → 2020-10-13 | Outpatient (CLI) | payer OTHER ==
[2020-10-13 14:22] LABS: Hematocrit 22.6 % (33.0-51.0); Hemoglobin 7.2 g/dL (11.5-16.0); Mean Corpuscular HGB 30.3 pg (26.0-34.0); Mean Corpuscular HGB Conc 31.9 g/dL (31.5-36.5); Mean Corpuscular Volume 95 fL (80-100); Mean Platelet Volume 8.8 fL (9.1-12.4); Platelet Count 433 K/mm3 (150-400); RDW Coefficient Variation 17.2 % (11.7-14.2); RDW Standard Deviation 60.2 fL (35.1-46.3); Red Blood Cell Count 2.38 M/mm3 (3.80-5.20); White Blood Cell Count 6.66 K/mm3 (4.00-11.30)
[2020-10-13 14:52] LABS: BAND PERCENT MAN 18 % (0-8); BASOPHILS PERCENT MAN 0 % (0-2); EOSINOPHILS PERCENT MAN 0 % (0-6); LYMPHOCYTES ABSOLUTE MAN 0.33 K/mm3 (0.84-5.20); LYMPHOCYTES PERCENT MAN 5 % (21-46); MONOCYTES ABSOLUTE MAN 0.19 K/mm3 (0.16-1.47); MONOCYTES PERCENT MAN 3 % (4-13); NEUTROPHILS ABSOLUTE MAN 6.12 K/mm3 (1.96-9.15); SEG NEUTROPHILS PERCENT MAN 74 % (41-73); TOTAL CELLS COUNTED 100
== END | disposition home or self-care (01) ==
LOC: LAB SHORT 13:17 → LAB 13:17
PROVIDERS: Internal Medicine Hematology & Oncology
DX: C80.1 Malignant (primary) neoplasm, unspecified (principal)
CPT/HCPCS: 85025

== ENCOUNTER → 2020-10-30 | Outpatient (CLI) | payer OTHER, SELFPAY ==
[~2020-10-30] MED LIST changes: +AZO CRANBERRY PO; +CALCIUM CIT 311 EACH PO; +Cipro500 MG PO; +DIPATR PO; +DRON2.5 PO; +FAMO20 PO; +FLAGYL500 M1 PO; +LOMOTIL 2.5-0.1 EACH PO; +LORAZEPAM0.5 MG PO; +OLAN2.5 PO; +ONDA4ODT SL; +POTA10T PO; +POTA20LUD PO; +Prednisone10 MG PO; +RESTORIL15 M1 PO
== END | disposition home or self-care (01) ==
LOC: LAB SRC 17:15 → LAB SHORT 17:15
DX: K52.3 Indeterminate colitis (principal)
CPT/HCPCS: 83993